=== PATIENT | male | born 1935 | race Caucasian/White ===

== ENCOUNTER → 2018-03-25 | Outpatient (CLI) | payer MEDICARE ==
[~2018-03-25] MED LIST: AMLO5TAB7 PO; ASPI-496 PO; ASPI-650 PO; ASPI325T17 PO; ATOR10TA9 PO; CEFD300C37 PO; CHOL500015 PO; CIPR500T3 PO; CLOP75TA PO; CREATINE PO; CYAN10005 PO; FESO8TAB PO; FOLIC ACID PO; LEVO75TA5 PO; METO25TA35 PO; MULT-516 PO; NAPR-685 PO; OXYB5TAB7 PO; SPIR50TA4 PO; TAMS0.4C2 PO; TOLT2CAP PO; antibiotic PO
== END | disposition home or self-care (01) ==
LOC: CFH 12:23
PROVIDERS: ATTEND Internal Medicine Cardiovascular Disease
DX: I08.3 Combined rheumatic disorders of mitral, aortic and tricuspid valves (principal); I25.2 Old myocardial infarction; I10 Essential (primary) hypertension; E78.5 Hyperlipidemia, unspecified; E11.9 Type 2 diabetes mellitus without complications; G45.9 Transient cerebral ischemic attack, unspecified; Z85.46 Personal history of malignant neoplasm of prostate
CPT/HCPCS: 93306

== ENCOUNTER 2018-06-27 10:05 | Day surgery (SDC) | payer MEDICARE ==
[~2018-06-27] VITALS: Ht 170.2 cm; Wt 78.8 kg
[~2018-06-27 10:05] MED LIST changes: +AMLO-150 PO; -AMLO5TAB7 PO; +ATOR-2 PO; +LOSA25TA6 PO
[2018-06-27] MEDS ORDERED: LACTATED RINGERS 1,000 ML IV SCH (10:40)
[2018-06-27 11:00] VITALS: BP 153/66
[2018-06-27] MEDS ORDERED: MIDAZOLAM 1 MG/ML, 2ML ONE (15:00)
[2018-06-27] MEDS ORDERED: DEXAMETHASONE 4 MG/ML, 1ML ONE (15:00)
[2018-06-27] MEDS ORDERED: CEFAZOLIN 1,000 MG ONE (15:00)
[2018-06-27] MEDS ORDERED: LIDOCAINE-MPF 2% ,5ML ONE (15:00)
[2018-06-27] MEDS ORDERED: ONDANSETRON 2MG/ML, 2ML ONE (15:00)
[2018-06-27] MEDS ORDERED: METOCLOPRAMIDE 5 MG/ML, 2ML ONE (15:00)
[2018-06-27] MEDS ORDERED: PROPOFOL 10 MG/ML, 20ML ONE (15:00)
[2018-06-27] MEDS ORDERED: FENTANYL PF 100 MCG/2ML ONE ×2 (15:00→16:00)
[2018-06-27] MEDS ORDERED: TRIAMCINOLONE ACETONIDE 40 MG/ML, 1ML MC ONE (15:22)
[2018-06-27] MEDS ORDERED: TRIAMCINOLONE ACETONIDE MC ONE (15:30)
[2018-06-27] MEDS ORDERED: SODIUM CHLORIDE 0.9% MC ONE (15:30)
[2018-06-27] MEDS ORDERED: ONDANSETRON 2MG/ML, 2ML IVPush PRN (16:00)
[2018-06-27] MEDS ORDERED: HYDROmorphone 1 MG/ML, 1ML IV PRN (16:00)
[2018-06-27] MEDS ORDERED: OXYcodone 5 MG/5 ML ORAL.SOL UDC ONE (16:00)
[2018-06-27] MEDS ORDERED: MEPERIDINE/PF 25MG/0.5ML IVPush PRN (16:00)
[2018-06-27] MEDS ORDERED: LABETALOL 5MG/ML, 20ML IV PRN (16:00)
[2018-06-27] MEDS ORDERED: MIDAZOLAM 1 MG/ML, 2ML IV PRN (16:00)
[2018-06-27] MEDS ORDERED: OXYcodone 5 MG/5 ML ORAL.SOL UDC PO PRN (16:00)
[2018-06-27] MEDS ORDERED: FENTANYL PF 100 MCG/2ML IV PRN (16:00)
[2018-06-27] MEDS ORDERED: OPIUM/BELLADONNA SUPP.RECT 16.2-30 MG ONE (16:36)
== END 2018-06-27 18:30 | disposition home or self-care (01) ==
LOC: OUT 10:05
PROVIDERS: ATTEND Urology
DX: N35.912 Unspecified bulbous urethral stricture, male (principal); I25.2 Old myocardial infarction; I10 Essential (primary) hypertension; E78.00 Pure hypercholesterolemia, unspecified; Z86.73 Personal history of transient ischemic attack (TIA), and cerebral infarction without residual deficits; Z98.890 Other specified postprocedural states
CPT/HCPCS: 52276; 52283; C1769; J0690; J1100; J2250; J2405; J2704; J2765; J3010; J3301; J3490; J7120

== ENCOUNTER → 2018-08-31 | Outpatient (CLI) | payer MEDICARE ==
[~2018-08-31] MED LIST changes: +LOSA25TA25 PO; -LOSA25TA6 PO; +REGADENOSON 0.4 MG/5 ML SYRINGE ONE
== END | disposition home or self-care (01) ==
LOC: CFH 08:48
PROVIDERS: ATTEND Internal Medicine Cardiovascular Disease
DX: I42.9 Cardiomyopathy, unspecified (principal); I25.2 Old myocardial infarction
CPT/HCPCS: 78452; 93017; A9502; J2785

== ENCOUNTER 2018-12-26 14:09 | Inpatient (IN) | payer MEDICARE ==
[~2018-12-26] VITALS: Ht 175.3 cm; Wt 77.8 kg
[~2018-12-26 14:09] MED LIST changes: -REGADENOSON 0.4 MG/5 ML SYRINGE ONE
--- NOTE | 2018-12-26 14:15 | NUR ---
BIB [facility] W/ CO DIZZINESS/GENERALIZED WEAKNESS/FEVER X 12 HOURS. +'CLOUDY' URINE. HX OF PROSTATE CA AND URINARY RETENTION. DENIES N/V/D/CP/SOB. POSITIVE ORTHO VS BY EMS, "PT PALE/DIZZY/DIAPHORETIC WITH TRANSITION TO SEATED POSITION". PT ARRIVES A&OX4, FACE SYMMETRICAL, SPEECH CLEAR. +STRENGTH X4. PWD. NEW HX OF AFIB X TWO WEEKS, ON METOPROPOL AND ELIQUIS. AFIB ON MONITOR, RATE 65-75 AFEBRILE UPON ARRIVAL. 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 PT PROVIDED URINAL AND IS AWARE OF NEED FOR UA. SO AT BEDSIDE.
--- NOTE | 2018-12-26 14:44 | NUR ---
UA COLLECTED AND SENT TO LAB
[2018-12-26 15:02] LABS: CULTURE INDICATED? YES; MICROSCOPIC INDICATED
[2018-12-26 15:20] LABS: MEAN CORPUSCULAR HEMOGLOBIN 34.6 pg (27.5-34.5); MEAN CORPUSCULAR HGB CONC 32.7 g/dL (33.2-36.2); MEAN CORPUSCULAR VOLUME 105.9 fL (81-97); MEAN PLATELET VOLUME 7.1 fL (7.4-10.4); PLATELET COUNT 264 x10^3/uL (130-400); RED BLOOD COUNT 3.16 x10^6/uL (4.38-5.82); RED CELL DISTRIBUTION WIDTH 14.3 % (9.4-14.8)
[2018-12-26 15:27] LABS: INTERNATIONAL NORMALIZED RATIO 1.06 (0.93-1.1); PROTHROMBIN TIME 11.1 Seconds (9.6-11.5)
[2018-12-26 15:32] LABS: ALANINE AMINOTRANSFERASE 13 U/L (12-78); ALBUMIN 2.5 g/dL (3.4-5.0); ANION GAP 10 mmol/L (5-15); CALCIUM 8.5 mg/dL (8.5-10.1); CHLORIDE 104 mmol/L (98-107)
[2018-12-26 15:35] LABS: ALKALINE PHOSPHATASE 126 U/L (45-117); BILIRUBIN,TOTAL 0.9 mg/dL (0.2-1.0); CREATININE 2.08 mg/dL (0.7-1.3); TOTAL PROTEIN 7.2 g/dL (6.4-8.2)
[2018-12-26 15:39] LABS: MD YES
[2018-12-26 15:41] LABS: BAND#(MANUAL) 0.54 x10^3/uL; BANDS%(MANUAL) 3 % (0-7); LYMPH#(MANUAL) 0.54 x10^3/uL (1-3.4); LYMPHS% (MANUAL) 3 % (22-44); MONOS#(MANUAL) 1.07 x10^3/uL (0.3-2.7); MONOS% (MANUAL) 6 % (2-9); SEG#(MANUAL) 15.75 x10^3/uL (1.8-6.8); SEGS% (MANUAL) 88 % (42-75)
[2018-12-26 15:42] LABS: <PLATELET ESTIMATE> ADEQUATE; <PLT MORPHOLOGY> NORMAL PLT MORPH
--- NOTE | 2018-12-26 15:44 | NUR ---
ERP AWARE OF WBC AND UA. BC TO BE DRAWN BY LAB. AWAITING ABX ORDERS.
[2018-12-26] MEDS ORDERED: CEFTRIAXONE PMX 1GM/50ML 50 ML ONE (15:50)
--- NOTE | 2018-12-26 15:56 | NUR ---
ABX INITIATED. BC X2 DRAWN PRIOR TO ADMIN EVIDENCED BY [facility].
[2018-12-26] MEDS ORDERED: APIX2.5T PO (15:59)
[2018-12-26] MEDS ORDERED: CEFTRIAXONE PMX 1GM/50ML 50 ML IV ONE (16:00)
[2018-12-26] MEDS ORDERED: SODIUM CHLORIDE 0.9% 1,000ML IVBOLUS ONE (16:00)
--- NOTE | 2018-12-26 16:30 | NUR ---
PT AWAKE/ALERT IN [facility] WATCHING TV WITH . NAD NOTED. NO S/S OF ABX RXN NOTED. AWAITING BED ASSIGNMENT.
[2018-12-26 16:52] LABS: HCT (SEDRATE) 33.4 % (39.2-51.8)
[2018-12-26] MEDS ORDERED: PHARMACY INSTRUCTION MC SCH ×2 (17:00)
[2018-12-26] MEDS ORDERED: CEFUROXIME 1.5 GM in SODIUM CHLORIDE 0.9% 100 ML IV SCH (17:00)
--- NOTE | 2018-12-26 17:01 | NUR ---
REPORT TO CARLO DE LUNA ON FLOOR. PT PREPARED FOR TRANSPORT.
[2018-12-26] MEDS ORDERED: ONDANSETRON 2MG/ML, 2ML IVPush PRN (18:00)
[2018-12-26] MEDS ORDERED: ACETAMINOPHEN 325 MG TABLET PO PRN (18:00)
[2018-12-26] MEDS ORDERED: hydrALAzine 20 MG/ML, 1ML IVPush PRN (18:00)
[2018-12-26] MEDS ORDERED: TEMAZEPAM 15 MG CAPSULE PO PRN (18:00)
[2018-12-26 18:03] VITALS: BP 83/34
[2018-12-26 18:04] VITALS: BP 123/64
[2018-12-26 18:05] VITALS: BP 152/68
[2018-12-26] MEDS: SODIUM CHLORIDE 0.9% 1,000 ML IV SCH (18:15)
[2018-12-26] MEDS: CIPROFLOXACIN/PMX 400MG/200ML 200 ML IVPB SCH (18:15)
[2018-12-26] MEDS: APIXABAN 2.5 MG TABLET PO SCH (20:26)
[2018-12-26] MEDS: ATORVASTATIN 80 MG TABLET PO SCH (20:26)
[2018-12-26 20:29] VITALS: BP 129/62
[2018-12-26] MEDS: METOPROLOL TARTRATE 25 MG TABLET PO SCH (20:29)
[2018-12-27] VITALS (8 sets, daily range): BP systolic 120–133; BP diastolic 52–69
[2018-12-27] MEDS: SODIUM CHLORIDE 0.9% 1,000 ML IV SCH ×3 (02:06→22:31)
[2018-12-27 05:24] LABS: BASOPHILS # (AUTO) 0.01 x10^3/uL (0-0.1); BASOPHILS % (AUTO) 0 % (0-1); EOSINOPHILS # (AUTO) 0.01 x10^3/uL (0-0.4); EOSINOPHILS % (AUTO) 0 % (1-7); LYMPHOCYTES # (AUTO) 0.39 x10^3/uL (1-3.4); LYMPHOCYTES % (AUTO) 3 % (22-44); MD NO; MEAN CORPUSCULAR HEMOGLOBIN 35.7 pg (27.5-34.5); MEAN CORPUSCULAR HGB CONC 33.5 g/dL (33.2-36.2); MEAN CORPUSCULAR VOLUME 106.8 fL (81-97); MEAN PLATELET VOLUME 7.6 fL (7.4-10.4); MONOCYTES # (AUTO) 0.74 x10^3/uL (0.2-0.8); MONOCYTES % (AUTO) 6 % (2-9); NEUTROPHILS # (AUTO) 11.21 x10^3/uL (1.8-6.8); NEUTROPHILS % (AUTO) 91 % (42-75); PLATELET COUNT 246 x10^3/uL (130-400); RED BLOOD COUNT 2.81 x10^6/uL (4.38-5.82); RED CELL DISTRIBUTION WIDTH 15.1 % (9.4-14.8)
[2018-12-27 05:28] LABS: ALBUMIN 2.1 g/dL (3.4-5.0); ANION GAP 6 mmol/L (5-15); CHLORIDE 108 mmol/L (98-107)
[2018-12-27 05:32] LABS: ALANINE AMINOTRANSFERASE 9 U/L (12-78); ALKALINE PHOSPHATASE 100 U/L (45-117); BILIRUBIN,TOTAL 0.4 mg/dL (0.2-1.0); CREATININE 2.08 mg/dL (0.7-1.3); TOTAL PROTEIN 6.1 g/dL (6.4-8.2)
[2018-12-27] MEDS: ASPIRIN 325 MG TABLET EC PO SCH (09:00)
[2018-12-27] MEDS ORDERED: MAGNESIUM SULFATE 4 GM in SODIUM CHLORIDE 0.9% 100 ML IV ONE (09:00)
[2018-12-27] MEDS: OXYBUTYNIN CHLORIDE 5 MG TABLET PO SCH (09:13)
[2018-12-27] MEDS: LEVOTHYROXINE 75 MCG TABLET PO SCH (09:13)
[2018-12-27] MEDS: TAMSULOSIN 0.4 MG CAP.ER.24H PO SCH (09:15)
[2018-12-27] MEDS: METOPROLOL TARTRATE 25 MG TABLET PO SCH ×2 (09:15→20:20)
[2018-12-27] MEDS: APIXABAN 2.5 MG TABLET PO SCH ×2 (09:19→20:20)
[2018-12-27] MEDS: CIPROFLOXACIN/PMX 400MG/200ML 200 ML IVPB SCH (14:02)
[2018-12-27] MEDS: ATORVASTATIN 80 MG TABLET PO SCH (20:20)
[2018-12-28] VITALS (8 sets, daily range): BP systolic 110–152; BP diastolic 54–77
[2018-12-28] MEDS: SODIUM CHLORIDE 0.9% 1,000 ML IV SCH ×3 (03:42→23:41)
[2018-12-28 06:02] LABS: CALCIUM 7.8 mg/dL (8.5-10.1); CHLORIDE 109 mmol/L (98-107)
[2018-12-28 06:06] LABS: ANION GAP 8 mmol/L (5-15); CREATININE 1.72 mg/dL (0.7-1.3)
[2018-12-28 06:07] LABS: BASOPHILS # (AUTO) 0.01 x10^3/uL (0-0.1); BASOPHILS % (AUTO) 0 % (0-1); EOSINOPHILS # (AUTO) 0.17 x10^3/uL (0-0.4); EOSINOPHILS % (AUTO) 2 % (1-7); LYMPHOCYTES % (AUTO) 6 % (22-44); MD NO; MEAN CORPUSCULAR HEMOGLOBIN 34.5 pg (27.5-34.5); MEAN CORPUSCULAR HGB CONC 32.6 g/dL (33.2-36.2); MEAN CORPUSCULAR VOLUME 105.8 fL (81-97); MEAN PLATELET VOLUME 7.3 fL (7.4-10.4); MONOCYTES # (AUTO) 0.76 x10^3/uL (0.2-0.8); MONOCYTES % (AUTO) 11 % (2-9); NEUTROPHILS # (AUTO) 5.81 x10^3/uL (1.8-6.8); NEUTROPHILS % (AUTO) 81 % (42-75); PLATELET COUNT 209 x10^3/uL (130-400); RED BLOOD COUNT 2.51 x10^6/uL (4.38-5.82)
[2018-12-28] MEDS: CIPROFLOXACIN/PMX 400MG/200ML 200 ML IVPB SCH ×2 (07:19→20:02)
[2018-12-28] MEDS: LEVOTHYROXINE 75 MCG TABLET PO SCH (08:48)
[2018-12-28] MEDS: POLYETHYLENE GLYCOL 17 GM PACKET PO SCH (08:48)
[2018-12-28] MEDS: APIXABAN 2.5 MG TABLET PO SCH ×2 (08:49→20:10)
[2018-12-28] MEDS: OXYBUTYNIN CHLORIDE 5 MG TABLET PO SCH (08:49)
[2018-12-28] MEDS: TAMSULOSIN 0.4 MG CAP.ER.24H PO SCH (08:49)
[2018-12-28] MEDS: METOPROLOL TARTRATE 25 MG TABLET PO SCH ×2 (08:52→20:10)
[2018-12-28] MEDS: ASPIRIN 325 MG TABLET EC PO SCH (08:53)
[2018-12-28] MEDS: ATORVASTATIN 80 MG TABLET PO SCH (20:10)
[2018-12-29 02:45] VITALS: BP 154/82
[2018-12-29 05:54] VITALS: BP_SYST 128; BP_SYST 133; BP_SYST 150; BP_DIAS 67; BP_DIAS 68; BP_DIAS 71
[2018-12-29] MEDS: CIPROFLOXACIN/PMX 400MG/200ML 200 ML IVPB SCH ×2 (08:01→20:36)
[2018-12-29] MEDS: POLYETHYLENE GLYCOL 17 GM PACKET PO SCH (08:01)
[2018-12-29] MEDS: METOPROLOL TARTRATE 25 MG TABLET PO SCH ×2 (08:01→21:42)
[2018-12-29] MEDS: OXYBUTYNIN CHLORIDE 5 MG TABLET PO SCH (08:01)
[2018-12-29] MEDS: APIXABAN 2.5 MG TABLET PO SCH ×2 (08:01→21:41)
[2018-12-29] MEDS: LEVOTHYROXINE 75 MCG TABLET PO SCH (08:02)
[2018-12-29] MEDS: TAMSULOSIN 0.4 MG CAP.ER.24H PO SCH (08:02)
[2018-12-29] MEDS: ASPIRIN 325 MG TABLET EC PO SCH (08:59)
[2018-12-29] MEDS: SODIUM CHLORIDE 0.9% 1,000 ML IV SCH (09:44)
[2018-12-29 13:30] VITALS: BP 130/70
[2018-12-29] MEDS ORDERED: POTASSIUM PHOSPHATE 22 MEQ in SODIUM CHLORIDE 0.9% 500 ML IV ONE (17:00)
[2018-12-29 19:19] VITALS: BP 142/80
[2018-12-29] MEDS: ATORVASTATIN 80 MG TABLET PO SCH (21:41)
[2018-12-30 00:31] VITALS: BP 141/66
[2018-12-30 05:27] VITALS: BP_SYST 153; BP_SYST 159; BP_SYST 162; BP_DIAS 68; BP_DIAS 69
[2018-12-30] MEDS: SODIUM CHLORIDE 0.9% 1,000 ML IV SCH (05:39)
[2018-12-30 05:46] LABS: MEAN CORPUSCULAR HEMOGLOBIN 35.4 pg (27.5-34.5); MEAN CORPUSCULAR HGB CONC 32.8 g/dL (33.2-36.2); MEAN PLATELET VOLUME 7.4 fL (7.4-10.4); PLATELET COUNT 251 x10^3/uL (130-400); RED BLOOD COUNT 2.71 x10^6/uL (4.38-5.82); RED CELL DISTRIBUTION WIDTH 15.1 % (9.4-14.8)
[2018-12-30 05:58] LABS: ALBUMIN 2.1 g/dL (3.4-5.0); ANION GAP 8 mmol/L (5-15); CALCIUM 8.2 mg/dL (8.5-10.1); CHLORIDE 110 mmol/L (98-107)
[2018-12-30 06:03] LABS: ALANINE AMINOTRANSFERASE 14 U/L (12-78); ALKALINE PHOSPHATASE 88 U/L (45-117); BILIRUBIN,TOTAL 0.5 mg/dL (0.2-1.0); TOTAL PROTEIN 5.8 g/dL (6.4-8.2)
[2018-12-30 06:05] LABS: BASOPHILS # (AUTO) 0.02 x10^3/uL (0-0.1); BASOPHILS % (AUTO) 0 % (0-1); EOSINOPHILS # (AUTO) 0.22 x10^3/uL (0-0.4); EOSINOPHILS % (AUTO) 3 % (1-7); LYMPHOCYTES # (AUTO) 0.54 x10^3/uL (1-3.4); LYMPHOCYTES % (AUTO) 8 % (22-44); MD SCAN; MONOCYTES % (AUTO) 13 % (2-9); NEUTROPHILS # (AUTO) 4.99 x10^3/uL (1.8-6.8); NEUTROPHILS % (AUTO) 75 % (42-75)
[2018-12-30 07:31] VITALS: BP 157/75
[2018-12-30] MEDS: OXYBUTYNIN CHLORIDE 5 MG TABLET PO SCH (07:39)
[2018-12-30] MEDS: CIPROFLOXACIN/PMX 400MG/200ML 200 ML IVPB SCH (07:39)
[2018-12-30] MEDS: APIXABAN 2.5 MG TABLET PO SCH (07:39)
[2018-12-30] MEDS: TAMSULOSIN 0.4 MG CAP.ER.24H PO SCH (07:39)
[2018-12-30] MEDS: LEVOTHYROXINE 75 MCG TABLET PO SCH (07:39)
[2018-12-30] MEDS: ASPIRIN 325 MG TABLET EC PO SCH (07:40)
[2018-12-30] MEDS: METOPROLOL TARTRATE 25 MG TABLET PO SCH (07:40)
[2018-12-30] MEDS: POLYETHYLENE GLYCOL 17 GM PACKET PO SCH (07:40)
[2018-12-30] MEDS ORDERED: MEROPENEM 1 GM in SODIUM CHLORIDE 0.9% 100 ML IV SCH (08:00)
[2018-12-30] MEDS ORDERED: PHARMACY INSTRUCTION MC SCH (08:00)
[2018-12-30] MEDS ORDERED: ACET325T14 PO (11:59)
[2018-12-30] MEDS ORDERED: ERTA1VIA IV (11:59)
[2018-12-30] MEDS ORDERED: LIDOCAINE JELLY TD (12:29)
[2018-12-30] MEDS ORDERED: LACT1TAB13 PO (12:29)
[2018-12-30 14:09] VITALS: BP 147/75
== END 2018-12-30 17:05 | disposition home health service (06) | DRG 871 ==
LOC: ED 16:08 → SUATTDRO 16:31 → 4NOR 17:11 → ED 18:21 → 4NOR 18:22 → DCLOUNGE 12-30 16:54
PROVIDERS: ADMIT Internal Medicine; ATTEND Internal Medicine
PROC: 02HV33Z Insertion of Infusion Device into Superior Vena Cava, Percutaneous Approach (ICD-10-PCS; principal; 2018-12-30)
PROC: B5181ZA Fluoroscopy of Superior Vena Cava using Low Osmolar Contrast, Guidance (ICD-10-PCS; 2018-12-30)
PROC: B548ZZA Ultrasonography of Superior Vena Cava, Guidance (ICD-10-PCS; 2018-12-30)
DX: A41.51 Sepsis due to Escherichia coli [E. coli] (principal); N17.0 Acute kidney failure with tubular necrosis; N12 Tubulo-interstitial nephritis, not specified as acute or chronic; R65.20 Severe sepsis without septic shock; E03.9 Hypothyroidism, unspecified; I10 Essential (primary) hypertension; E78.5 Hyperlipidemia, unspecified; I48.0 Paroxysmal atrial fibrillation; I25.10 Atherosclerotic heart disease of native coronary artery without angina pectoris; E83.42 Hypomagnesemia; G90.8 Other disorders of autonomic nervous system; B96.20 Unspecified Escherichia coli [E. coli] as the cause of diseases classified elsewhere; Z87.440 Personal history of urinary (tract) infections; Z85.46 Personal history of malignant neoplasm of prostate; Z86.73 Personal history of transient ischemic attack (TIA), and cerebral infarction without residual deficits; Z92.3 Personal history of irradiation; Z79.01 Long term (current) use of anticoagulants; Z87.891 Personal history of nicotine dependence; Z80.8 Family history of malignant neoplasm of other organs or systems; Z80.1 Family history of malignant neoplasm of trachea, bronchus and lung; Z79.899 Other long term (current) drug therapy
CPT/HCPCS: 36415; 36573; 71045; 80048; 80053; 81001; 83605; 83735; 84100; 84145; 85025; 85610; 85651; 86140; 87040; 87077; 87086; 87186; 93005; 93880; 96365; 99285; G0378; J0696; J0744; J2185; J3475; C1751; J7030; J7040

== ENCOUNTER → 2021-02-11 | Outpatient (CLI) | payer MEDICARE ==
[~2021-02-11] MED LIST changes: +ACET325T14 PO; +APIX2.5T PO; +ASPI-1026 PO; -ASPI-650 PO; -CIPR500T3 PO; +CIPR500T4 PO; +CYAN-27 PO; -CYAN10005 PO; +ERTA1VIA IV; +LACT1TAB13 PO; +LIDOCAINE JELLY TD; +OXYB5TAB10 PO; -OXYB5TAB7 PO; +[UNRECOGNIZED DRUG - OTHER] PO; +[UNRECOGNIZED DRUG - REMARK] PO; +folic acid PO; +mutivitamin PO
== END | disposition home or self-care (01) ==
LOC: RAD 11:07
PROVIDERS: ATTEND Urology
DX: C61 Malignant neoplasm of prostate (principal)
CPT/HCPCS: 78306; A9503

== ENCOUNTER 2021-02-20 13:50 | Outpatient (CLI) | payer MEDICARE ==
[~2021-02-20 13:50] MED LIST changes: +GADOTERATE 10 MMOL/20 ML VIAL ONE
== END 2021-02-20 23:59 | disposition home or self-care (01) ==
LOC: RAD 13:50
PROVIDERS: ATTEND Urology
DX: C61 Malignant neoplasm of prostate (principal); N13.30 Unspecified hydronephrosis; K80.20 Calculus of gallbladder without cholecystitis without obstruction; N26.1 Atrophy of kidney (terminal); K44.9 Diaphragmatic hernia without obstruction or gangrene; N62 Hypertrophy of breast
CPT/HCPCS: 74183; A9575